=== PATIENT | female | born 1945 | race Caucasian/White ===

== ENCOUNTER 2023-02-02 02:22 | Emergency (ER) | payer MEDICARE, OTHER ==
[~2023-02-02] VITALS: Ht 160 cm; Wt 75.0 kg
[2023-02-02 04:17] LABS: HEMOGLOBIN 13.1 g/dl (12.0-15.5); MEAN CORPUSCULAR HEMOGLOBIN 36.3 pg (27.0-33.0); MEAN CORPUSCULAR HGB CONC 34.5 g/dl (32.0-36.5); MEAN CORPUSCULAR VOLUME 105.3 fl (80.0-96.0); PLATELET COUNT, AUTOMATED 200 10^3/uL (150-450); RED BLOOD COUNT 3.61 10^6/uL (4.00-5.40); WHITE BLOOD COUNT 5.2 10^3/uL (4.0-10.0)
[2023-02-02] MEDS ORDERED: SILVER NITRATE APPLICATOR (1 = QTY 10) TOP ONE (06:25)
[2023-02-02 07:23] VITALS: BP 152/65; TEMP 98; O2SAT 98
== END 2023-02-02 07:29 | disposition home or self-care (01) ==
LOC: M ED 02:22
DX: R04.0 Epistaxis (principal)